=== PATIENT | male | born 1970 | race Caucasian/White ===

== ENCOUNTER 2020-08-05 11:50 | Outpatient (CLI) | payer OTHER ==
--- NOTE | 2020-08-05 12:29 | RAD ---
Lumbar spine 2 views 08/05/2020 HISTORY: Disability evaluation FINDINGS: There are 2 small calcifications in the mid left abdomen measuring up to 5 mm. These may be associated with the left kidney or bowel content. Lumbar pedicles appear intact on frontal imaging. Lateral exam demonstrates normal vertebral body height and alignment. No acute osseous abnor mality. Lower lumbar spine facet hypertrophy noted at L4-5 and L5-S1. IMPRESSION: No acute osseous abnormality.
== END 2020-08-05 11:51 | disposition home or self-care (01) ==
LOC: BICRAD 11:50
PROVIDERS: ATTEND Internal Medicine
DX: Z02.71 Encounter for disability determination (principal)
CPT/HCPCS: 72100

== ENCOUNTER 2020-10-15 10:54 | Outpatient (CLI) | payer MEDICARE, MEDICAID ==
--- NOTE | 2020-10-15 11:54 | MRI ---
EXAM: Cervical spine MRI Without contrast. HISTORY: Cervical radicular pain COMPARISON: None. FINDINGS: Multiplanar multisequence MRI examination of the cervical spine is performed. Status post discectomy at C3-C4 with resultant fusion of the vertebral bodies. Generalized disc osteophytosis and facet arthrosis. No significant malalignment. Minimal type I endplate changes at C7-T1 No evidence for spinal cord mass or abnormal signal within the spinal cord. Visualized lower brain and neck soft tissues show no significant acute process. C2-C3 level: Central disc osteophyte with minimal ventral and dorsal indention of the thecal sac evid ence for mild central canal stenosis without significant foraminal stenosis. C3-C4 level: Resultant fusion from prior surgery. No associated significant stenosis. C4-C5 level: Central and right paracentral disc osteophyte with moderate central canal and right late ral recess and right foraminal stenosis. C5-C6 level: Generalized disc osteophyte with mild central canal and moderate bilateral recess stenos is and mild bilateral foraminal stenosis. C6-C7 level: Mild diffuse disc osteophyte with mild central canal and lateral recess stenosis. C7-T1 level: Diffuse disc osteophyte with moderate central canal and lateral recess and right foramin al stenosis. IMPRESSION: Multilevel variable severity canal, lateral recess, and foraminal stenosis.
== END 2020-10-15 10:55 | disposition home or self-care (01) ==
LOC: BICMRI 10:54
PROVIDERS: ATTEND Family Medicine
DX: M47.22 Other spondylosis with radiculopathy, cervical region (principal); M50.10 Cervical disc disorder with radiculopathy, unspecified cervical region; M79.18 Myalgia, other site; M48.02 Spinal stenosis, cervical region; M48.03 Spinal stenosis, cervicothoracic region
CPT/HCPCS: 72141

== ENCOUNTER 2021-03-14 14:40 | Observation (INO) | payer MEDICARE, MEDICAID ==
[2021-03-14 15:10] LABS: #Basophils 0.1 thou/uL (0.0-0.2); #Eosinphils 0.2 thou/uL (0.0-0.7); #Lymphocytes 3.4 thou/uL (1.20-3.40); #Monocytes 0.7 thou/uL (0.11-0.59); #Neutrophils 9.7 thou/uL (1.40-6.50); %Basophils 0.6 % (0.0-1.0); %Eosinophils 1.8 % (0.0-10.0); %Lymphocytes 23.9 % (21.0-51.0); %Monocytes 5.3 % (0.0-10.0); %Neutrophils 68.5 % (42.0-75.0); Hemoglobin 15.5 g/dL (14.0-18.0); Mean Corpuscular HGB CONC 34.5 g/dL (32.0-36.0); Mean Corpuscular Hemoglobin 29.4 pg (27.0-31.0); Mean Corpuscular Volume 85.3 fL (78.0-98.0); Mean Platelet Volume 8.2 fL (7.4-10.4); Platelet Count 200 thou/uL (130-400); RBC Distribution Width 12.7 % (11.5-14.5); Red Blood Cell (RBC) Count 5.26 mill/uL (4.70-6.10); White Blood Cell (WBC) Count 14.1 thou/uL (4.8-10.8)
[2021-03-14 15:33] LABS: ALT (SGPT) 8 U/L (8-55); AST (SGOT) 13 U/L (5-34); Alkaline Phosphatase 82 U/L (40-110); Anion Gap 13 mmol/L (10-20); BUN (Urea Nitrogen) 11 mg/dL (8.4-25.7); Bilirubin, Total 0.4 mg/dL (0.2-1.2); Calc. Creatinine Clearance 0 mL/min (70-130); Calcium 9.5 mg/dL (7.8-10.44); Carbon Dioxide 26 mmol/L (22-29); Chloride 104 mmol/L (98-107); Globulin 3.1 g/dL (2.4-3.5); Glucose 82 mg/dL (70-105); Lipase 34 U/L (8-78); Potassium 4.1 mmol/L (3.5-5.1); Protein, Total 7.1 g/dL (6.0-8.3); Sodium 139 mmol/L (136-145)
[2021-03-14] MEDS ORDERED: Aspirin Chewable 81 MG TAB ONE (16:10)
[2021-03-14] MEDS ORDERED: Ondansetron ODT 4 MG TAB PO PRN (16:41)
[2021-03-14] MEDS ORDERED: Acetaminophen 325 MG TAB PO PRN (16:41)
[2021-03-14] MEDS ORDERED: Ondansetron PF 4 MG/2 ML Vial IVP PRN (16:41)
[2021-03-14] MEDS ORDERED: Enoxaparin Sodium 40 MG/0.4 ML SYRINGE SC SCH (17:00)
[2021-03-14] MEDS ORDERED: Enoxaparin Sodium 80 MG/0.8 ML SYRINGE SC SCH (17:00)
[2021-03-14 20:23] LABS: Troponin I Less than 0.010 ng/mL (< 0.028)
[2021-03-14 22:00] VITALS: BMI 23.9
[2021-03-15 03:19] VITALS: TEMP 97.7
[2021-03-15 05:25] LABS: SARS-CoV-2 PCR by NAA Not Detected (NotDetected)
[2021-03-15] MEDS ORDERED: Sodium Chloride 0.9% 1,000 ML IV SCH ×2 (08:15→13:00)
[2021-03-15] MEDS ORDERED: Diazepam 5 MG TAB PO SCH (08:15)
[2021-03-15] MEDS ORDERED: Communication Order-Pharmacy FS SCH (08:15)
[2021-03-15] MEDS ORDERED: FLUoxetine HCl 20 MG CAP PO SCH (09:00)
[2021-03-15] MEDS ORDERED: Allopurinol 300 MG TAB PO SCH (09:00)
[2021-03-15] MEDS ORDERED: Iopamidol 370 76% 100 ML VIAL ONE (10:30)
[2021-03-15] MEDS ORDERED: Adenosine 6 MG/2 ML VIAL ONE (11:31)
[2021-03-15] MEDS ORDERED: Verapamil 5 MG/2 ML VIAL ONE (11:31)
[2021-03-15] MEDS ORDERED: Lidocaine 1% (PF) 30 ML VIAL ONE (11:32)
[2021-03-15] MEDS ORDERED: Nitroglycerin 100MG/250ML BOT 0 ML ONE (11:32)
[2021-03-15] MEDS ORDERED: Fentanyl 100 MCG/2 ML VIAL ONE (12:28)
[2021-03-15] MEDS ORDERED: Midazolam HCl 2 mg/2 ml Vial ONE (12:29)
[2021-03-15] MEDS ORDERED: Sodium Chloride 0.9% 200 ML IV PRN (12:48)
[2021-03-15] MEDS ORDERED: Acetaminophen/Codeine 30-300mg Tablet PO PRN ×2 (12:48)
[2021-03-15] MEDS ORDERED: Nitroglycerin 0.4 MG TAB (25 Tab Bottle) SL PRN (12:48)
[2021-03-15 17:18] VITALS: BP 110/65
[2021-03-15] MEDS ORDERED: Gabapentin 100 MG CAP PO SCH (21:00)
== END 2021-03-15 19:35 | disposition home or self-care (01) ==
LOC: ERS 14:40 → 2SW 16:23
PROVIDERS: ADMIT Student in an Organized Health Care Education/Training Program; ATTEND Student in an Organized Health Care Education/Training Program
PROC: 4A023N7 Measurement of Cardiac Sampling and Pressure, Left Heart, Percutaneous Approach (ICD-10-PCS; principal; 2021-03-14)
PROC: B2011ZZ Plain Radiography of Multiple Coronary Arteries using Low Osmolar Contrast (ICD-10-PCS; 2021-03-14)
DX: I20.0 Unstable angina (principal); I11.0 Hypertensive heart disease with heart failure; I50.23 Acute on chronic systolic (congestive) heart failure; M10.9 Gout, unspecified; F17.210 Nicotine dependence, cigarettes, uncomplicated; G89.4 Chronic pain syndrome; G47.33 Obstructive sleep apnea (adult) (pediatric); Z79.899 Other long term (current) drug therapy; Z20.822 Contact with and (suspected) exposure to COVID-19; Z82.49 Family history of ischemic heart disease and other diseases of the circulatory system; Z20.828 Contact with and (suspected) exposure to other viral communicable diseases
CPT/HCPCS: 71045; 76942; 80053; 83690; 84484 ×2; 85025; 93005; 93458; 96372; 99285; G0378 ×3; U0003; U0005; 36415; 87635; 99152; J0153; J1650; J2001; J2250; J3010; Q9967